=== PATIENT | female | born 1960 | race Caucasian/White ===

== ENCOUNTER 2020-11-05 08:24 | Day surgery (SDC) | payer OTHER ==
[~2020-11-05] VITALS: Ht 165.1 cm; Wt 90.0 kg
[~2020-11-05 08:24] MED LIST: CLINDAMYCIN 150 MG/ML, 6ML ONE; SCOPOLAMINE 1MG PATCH TD ONE
[2020-11-05] MEDS ORDERED: CHLORHEXIDINE 15 ML UDC ONE (08:45)
[2020-11-05] MEDS ORDERED: LIDOCAINE-MPF 1%, 2ML ONE (08:45)
[2020-11-05 08:58] VITALS: BP 117/81
[2020-11-05] MEDS ORDERED: LACTATED RINGERS 1,000 ML IV SCH (09:00)
[2020-11-05] MEDS ORDERED: LIDOCAINE-MPF 1%, 2ML INFIL ONE (09:00)
[2020-11-05] MEDS ORDERED: CHLORHEXIDINE 15 ML UDC PO ONE (09:00)
[2020-11-05] MEDS ORDERED: FENTANYL PF 100 MCG/2ML ONE (09:56)
[2020-11-05] MEDS ORDERED: MIDAZOLAM 1 MG/ML, 2ML ONE (09:56)
[2020-11-05] MEDS ORDERED: PROPOFOL 50 ML ONE (09:58)
[2020-11-05] MEDS ORDERED: LABETALOL 5MG/ML, 20ML IV PRN (10:30)
[2020-11-05] MEDS ORDERED: MEPERIDINE/PF 25MG/0.5ML IVPush PRN (10:30)
[2020-11-05] MEDS ORDERED: ACETAMINOPHEN 325 MG TABLET PO PRN (10:30)
[2020-11-05] MEDS ORDERED: ALBUTEROL SULFATE 2.5 MG/3 ML NPPB PRN (10:30)
[2020-11-05] MEDS ORDERED: MIDAZOLAM 1 MG/ML, 2ML IV PRN (10:30)
[2020-11-05] MEDS ORDERED: HYDROmorphone 1 MG/ML, 1ML INJ IVPush PRN (10:30)
[2020-11-05] MEDS ORDERED: FENTANYL PF 100 MCG/2ML IV PRN (10:30)
[2020-11-05] MEDS ORDERED: OXYcodone 5 MG/5 ML ORAL.SOL UDC PO PRN (10:30)
[2020-11-05] MEDS ORDERED: PROMETHAZINE 25 MG/ML, 1ML IVPush PRN (10:30)
[2020-11-05] MEDS ORDERED: BUPIVACAINE/PF 0.5% ONE (12:03)
[2020-11-05] MEDS ORDERED: GLYCOPYRROLATE 0.2MG/1ML, 5ML ONE (12:04)
[2020-11-05] MEDS ORDERED: ONDANSETRON 2MG/ML, 2ML ONE (12:04)
[2020-11-05] MEDS ORDERED: PROPOFOL 10 MG/ML, 20ML ONE (12:04)
[2020-11-05] MEDS ORDERED: LIDOCAINE-MPF 2% ,5ML ONE (12:04)
[2020-11-05] MEDS ORDERED: DEXAMETHASONE 4 MG/ML, 1ML ONE (12:04)
[2020-11-05] MEDS ORDERED: NEOSTIGMINE 1 MG/ML, 10ML ONE (12:04)
[2020-11-05] MEDS ORDERED: CEFAZOLIN 1,000 MG ONE (12:04)
[2020-11-05] MEDS ORDERED: ROCURONIUM 10MG/ML,5ML ONE (12:04)
== END 2020-11-05 15:00 | disposition home or self-care (01) ==
LOC: OUT 08:24
PROVIDERS: ATTEND Orthopaedic Surgery
DX: M19.011 Primary osteoarthritis, right shoulder (principal); M67.921 Unspecified disorder of synovium and tendon, right upper arm; M25.511 Pain in right shoulder; E78.5 Hyperlipidemia, unspecified; Z79.899 Other long term (current) drug therapy; Z72.89 Other problems related to lifestyle; Z98.890 Other specified postprocedural states
CPT/HCPCS: 23430; 23472; 64415; C1713; C1776; J0690; J1100; J2250; J2405; J2704; J2710; J3010; J7120